=== PATIENT | male | born 2000 | race Caucasian/White ===

== ENCOUNTER 2022-02-19 16:40 | Emergency (ER) | payer OTHER ==
[~2022-02-19] VITALS: Ht 188 cm; Wt 68.2 kg
[2022-02-19] MEDS ORDERED: HYDROcodone/acetaminophen 10/325mg tab PO ONE (16:55)
[2022-02-19] MEDS ORDERED: morphine 4 MG/ML inj SYRINge IV ONE (17:20)
[2022-02-19] MEDS ORDERED: ondansetron/PF 4mg/2ml inj IV ONE (17:20)
--- NOTE | 2022-02-19 17:34 | NUR ---
pt. refused IV pain and nausea medicine at this time. states he feels "okay right now". offered additional pillows to elevate foot, but pt. states he does not need them.
--- NOTE | 2022-02-19 18:25 | NUR ---
provider at bedside. ice pack provided for pt.
--- NOTE | 2022-02-19 18:26 | NUR ---
report to crystal pineda
[2022-02-19 18:35] VITALS: BP 136/84
[2022-02-19] MEDS ORDERED: IBUP-1986 PO (18:52)
[2022-02-19] MEDS ORDERED: HYDR-3965 PO (19:18)
[2022-02-20] MEDS ORDERED: HYDR-3965 PO (14:35)
== END 2022-02-19 19:19 | disposition home or self-care (01) ==
LOC: ER 16:42
DX: S92.202A Fracture of unspecified tarsal bone(s) of left foot, initial encounter for closed fracture (principal); M79.672 Pain in left foot; M25.532 Pain in left wrist; N18.9 Chronic kidney disease, unspecified; Z79.899 Other long term (current) drug therapy; W01.0XXA Fall on same level from slipping, tripping and stumbling without subsequent striking against object, initial encounter; Y93.89 Activity, other specified; Y92.89 Other specified places as the place of occurrence of the external cause; Y99.8 Other external cause status
CPT/HCPCS: 29125; 29515; 73110; 73630; 99284